=== PATIENT | male | born 1945 | race African-American/Black ===

== ENCOUNTER 2020-09-15 10:24 | Emergency (ER) | payer OTHER, MEDICAID ==
[~2020-09-15] VITALS: Ht 170.2 cm; Wt 106.0 kg
[2020-09-15] MEDS ORDERED: FAMOTIDINE 20MG/2ML VIAL IV STA (11:34)
[2020-09-15] MEDS ORDERED: MORPHINE SULFATE 4 MG/ML CPJ (NOT FOR IM USE) IV STA (11:34)
[2020-09-15] MEDS ORDERED: SODIUM CHLORIDE 0.9% 1,000 ML IV ONE (11:45)
[2020-09-15 12:14] LABS: BASOPHILS % 1.2 % (0.0-2.0); EOSINOPHILS % 3.5 % (0.0-5.0); HEMATOCRIT. 36.5 % (42.0-52.0); HEMOGLOBIN. 12.3 g/dL (14.0-18.0); LYMPHOCYTES % 44.3 % (20.0-50.0); MEAN CORPUSCULAR VOLUME 86.2 fL (80.0-94.0); MEAN PLATELET VOLUME 9.7 fl (7.4-10.4); MONOCYTES % 7.2 % (2.0-8.0); NEUTROPHILS % 43.8 % (40.0-76.0); PLATELET 310 x1000/uL (130-400); RED BLOOD CELL COUNT 4.24 mill/uL (4.7-6.1); RED CELL DISTRIBUTION WIDTH 14.9 % (11.6-14.6)
[2020-09-15 12:16] LABS: CHLORIDE 103 mEq/L (98-107)
[2020-09-15 12:20] LABS: PROTHROMBIN TIME 10.7 sec (9.6-11.0)
[2020-09-15 23:00] VITALS: BP 151/73
== END 2020-09-15 22:59 | disposition short-term general hospital (02) ==
LOC: ER 10:24 → ENRESERV 20:22 → CANRESERV 20:22 → CANBEDREQ 20:24 → ER 22:59
DX: K85.90 Acute pancreatitis without necrosis or infection, unspecified (principal); I10 Essential (primary) hypertension; E11.9 Type 2 diabetes mellitus without complications; E78.00 Pure hypercholesterolemia, unspecified; Z86.73 Personal history of transient ischemic attack (TIA), and cerebral infarction without residual deficits
CPT/HCPCS: 36415; 71045; 74176; 80053; 83690; 85025; 85610; 93005; 96374; 96375; 99285; J2270; J3490; J7030